=== PATIENT | female | born 2000 | race African-American/Black ===

== ENCOUNTER 2021-10-19 11:39 | Emergency (ER) | payer MEDICAID ==
[~2021-10-19] VITALS: Ht 162.6 cm; Wt 100.0 kg
[2021-10-19] MEDS ORDERED: METHYLPREDNISOLONE SOD SUCC 125 MG/2 ML VIAL IM STA (13:02)
[2021-10-19] MEDS ORDERED: ALBUTEROL (0.083%) 2.5MG/3ML NEB HHN STA (13:02)
[2021-10-19] MEDS ORDERED: IPRATROPIUM BROMIDE (0.02%) 0.5MG/2.5ML NEB HHN STA (13:02)
[2021-10-19] MEDS ORDERED: ALBU18HF2 IH ×2 (14:56→15:00)
[2021-10-19] MEDS ORDERED: P20 PO ×2 (14:56→15:00)
[2021-10-19 15:08] VITALS: BP 128/63
== END 2021-10-19 15:09 | disposition home or self-care (01) ==
LOC: ER 11:39
DX: J45.901 Unspecified asthma with (acute) exacerbation (principal)
CPT/HCPCS: 94640; 96372; 99283; J2930; Z7610